=== PATIENT | male | born 1960 | race Caucasian/White ===

== ENCOUNTER 2022-08-14 10:08 | Inpatient (IN) | payer OTHER ==
[~2022-08-14] VITALS: Ht 175.3 cm; Wt 95.3 kg
[2022-08-14] MEDS ORDERED: ENOXAPARIN 60MG/0.6ML SYR SUBCUT ONE (11:45)
[2022-08-14 13:14] LABS: BASOPHILS % 0.5 % (0.0-2.0); EOSINOPHILS % 2.8 % (0.0-5.0); HEMATOCRIT. 46.1 % (42.0-52.0); HEMOGLOBIN. 15.1 g/dL (14.0-18.0); LYMPHOCYTES % 19.4 % (20.0-50.0); MEAN CORPUSCULAR HEMOGLOBIN 30.3 pg (28.0-32.0); MEAN CORPUSCULAR VOLUME 92.7 fL (80.0-94.0); MEAN PLATELET VOLUME 11.1 fl (7.4-10.4); MONOCYTES % 8.7 % (2.0-8.0); NEUTROPHILS % 68.6 % (40.0-76.0); PLATELET 106 x1000/uL (130-400); RED BLOOD CELL COUNT 4.97 mill/uL (4.7-6.1); RED CELL DISTRIBUTION WIDTH 13.9 % (11.6-14.6)
[2022-08-14 13:22] LABS: D-DIMER 3.16 mg/L FEU (<0.50); PARTIAL THROMBOPLASTIN TIME 25.7 sec (23.4-31.0); PROTHROMBIN TIME 10.9 sec (9.6-11.0)
[2022-08-14 14:46] LABS: CHLORIDE 110 mEq/L (98-107)
[2022-08-14] MEDS ORDERED: SODIUM CHLORIDE 0.9% 1,000 ML IV NR (15:30)
[2022-08-14] MEDS ORDERED: IOHEXOL-300 100 ML BOTTLE ONE (15:32)
[2022-08-15 02:20] VITALS: BP 132/89
[2022-08-15 02:28] VITALS: BP 132/89
[2022-08-15] MEDS ORDERED: DULA0.75 SQ (04:33)
[2022-08-15] MEDS ORDERED: METO25TA6 MT (04:33)
[2022-08-15] MEDS ORDERED: LOSA100T32 MT (04:33)
[2022-08-15] MEDS ORDERED: AMLO10TA80 MT (04:33)
[2022-08-15] MEDS ORDERED: HYDR12.54 MT (04:33)
[2022-08-15] MEDS ORDERED: DEXTROSE 50% WATER 50ML SYRINGE IV PRN (06:30)
[2022-08-15] MEDS: ACETAMINOPHEN 325MG TABLET PO PRN (06:56)
[2022-08-15] MEDS: BLOOD SUGAR DIAGNOSTIC STRIP TEST SCH ×4 (06:58→21:15)
[2022-08-15] MEDS: INSULIN LISPRO 100 UNITS/ML SUBCUT SCH ×4 (07:57→21:00)
[2022-08-15] MEDS: ENOXAPARIN 120MG/0.8ML SYR SUBCUT SCH ×2 (08:23→21:14)
[2022-08-15 10:10] LABS: BASOPHILS % 0.3 % (0.0-2.0); EOSINOPHILS % 2.2 % (0.0-5.0); HEMOGLOBIN. 13.7 g/dL (14.0-18.0); LYMPHOCYTES % 20.1 % (20.0-50.0); MEAN CORPUSCULAR VOLUME 92.6 fL (80.0-94.0); MONOCYTES % 7.5 % (2.0-8.0); NEUTROPHILS % 69.9 % (40.0-76.0); PLATELET 103 x1000/uL (130-400); RED BLOOD CELL COUNT 4.43 mill/uL (4.7-6.1)
[2022-08-15 12:00] VITALS: BP 138/85
[2022-08-15 16:00] VITALS: BP 132/83
[2022-08-15] MEDS: METOPROLOL TARTRATE 25MG TABLET PO SCH (17:34)
[2022-08-15 20:00] VITALS: BP 138/84
[2022-08-16] VITALS: BP 130/74
[2022-08-16] MEDS: SODIUM CHLORIDE 0.9% 1,000 ML IV SCH ×2 (01:13→17:17)
[2022-08-16 04:00] VITALS: BP 125/80
[2022-08-16] MEDS: INSULIN LISPRO 100 UNITS/ML SUBCUT SCH ×4 (06:25→21:00)
[2022-08-16] MEDS: BLOOD SUGAR DIAGNOSTIC STRIP TEST SCH ×4 (06:25→21:00)
[2022-08-16 08:00] VITALS: BP 133/77
[2022-08-16] MEDS ORDERED: LOSARTAN POTASSIUM 100 MG TABLET PO SCH (09:00)
[2022-08-16] MEDS ORDERED: HYDROCHLOROTHIAZIDE 12.5MG CAPSULE PO SCH (09:00)
[2022-08-16] MEDS: ENOXAPARIN 120MG/0.8ML SYR SUBCUT SCH (09:15)
[2022-08-16] MEDS: METOPROLOL TARTRATE 25MG TABLET PO SCH ×2 (09:16→17:00)
[2022-08-16] MEDS: AMLODIPINE 10MG TABLET PO SCH (09:16)
[2022-08-16 12:00] VITALS: BP 115/72
[2022-08-16 16:00] VITALS: BP 113/64
[2022-08-16 16:56] LABS: CREATINE KINASE 59 IU/L (39-308)
[2022-08-16] MEDS ORDERED: IODIXANOL 320MG/ML 100 ML BOTTLE IV ONE (17:24)
[2022-08-16] MEDS ORDERED: LIDOCAINE HCL 1% 20ML VIAL (Pyxis) INJ ONE (17:24)
[2022-08-16] MEDS ORDERED: HEPARIN 1000 UNITS/ML 10ML ONE (17:24)
[2022-08-16] MEDS ORDERED: MIDAZOLAM HCL 2 MG/2 ML VIAL ONE (17:24)
[2022-08-16] MEDS ORDERED: FENTANYL CITRATE/PF 50MCG/ML 2ML VIAL ONE (17:24)
[2022-08-16] MEDS ORDERED: ALTEPLASE 2MG/VIAL ITC NR ×2 (18:00)
[2022-08-16 20:30] VITALS: BP 129/84
[2022-08-16] MEDS: APIXABAN 5 MG TABLET PO SCH (21:22)
[2022-08-16] MEDS: ACETAMINOPHEN 325MG TABLET PO PRN (23:59)
[2022-08-17] VITALS: BP 131/83
[2022-08-17 04:05] VITALS: BP 111/62
[2022-08-17 06:09] LABS: BASOPHILS % 0.3 % (0.0-2.0); EOSINOPHILS % 1.7 % (0.0-5.0); HEMATOCRIT. 42.4 % (42.0-52.0); HEMOGLOBIN. 14.3 g/dL (14.0-18.0); LYMPHOCYTES % 14.4 % (20.0-50.0); MEAN CORPUSCULAR HEMOGLOBIN 30.8 pg (28.0-32.0); MEAN CORPUSCULAR VOLUME 91.3 fL (80.0-94.0); MEAN PLATELET VOLUME 11.1 fl (7.4-10.4); MONOCYTES % 7.9 % (2.0-8.0); NEUTROPHILS % 75.7 % (40.0-76.0); PLATELET 99 x1000/uL (130-400); RED BLOOD CELL COUNT 4.65 mill/uL (4.7-6.1); RED CELL DISTRIBUTION WIDTH 13.8 % (11.6-14.6)
[2022-08-17] MEDS: BLOOD SUGAR DIAGNOSTIC STRIP TEST SCH ×3 (06:51→16:35)
[2022-08-17] MEDS: INSULIN LISPRO 100 UNITS/ML SUBCUT SCH ×3 (07:31→16:37)
[2022-08-17 08:00] VITALS: BP 111/71
[2022-08-17] MEDS: APIXABAN 5 MG TABLET PO SCH ×2 (10:11→16:35)
[2022-08-17] MEDS: AMLODIPINE 10MG TABLET PO SCH (10:11)
[2022-08-17] MEDS: METOPROLOL TARTRATE 25MG TABLET PO SCH ×2 (10:11→16:35)
[2022-08-17 12:00] VITALS: BP 117/71
[2022-08-17] MEDS ORDERED: GLIP5TAB12 MT (12:19)
[2022-08-17] MEDS ORDERED: ATOR40TA70 MT (12:19)
[2022-08-17] MEDS ORDERED: AMMO140C2 TP (12:19)
[2022-08-17] MEDS ORDERED: DAPA5TAB MT (12:19)
[2022-08-17] MEDS: SODIUM CHLORIDE 0.9% 1,000 ML IV SCH (14:30)
[2022-08-17] MEDS ORDERED: APIX5TAB PO (14:46)
[2022-08-17 15:07] VITALS: BP 117/71
[2022-08-23] MEDS ORDERED: APIXABAN 5 MG TABLET PO SCH (17:00)
== END 2022-08-17 19:00 | disposition home or self-care (01) | DRG 169 ==
LOC: ER 10:32 → EDBEDREQ 17:39 → EDBEDREQTM 17:39 → ER 08-15 02:09 → 7WST 08-15 02:21
PROVIDERS: ADMIT Hospitalist; ATTEND Hospitalist
PROC: 06C03ZZ Extirpation of Matter from Inferior Vena Cava, Percutaneous Approach (ICD-10-PCS; principal; 2022-08-16)
PROC: 06CC3ZZ Extirpation of Matter from Right Common Iliac Vein, Percutaneous Approach (ICD-10-PCS; 2022-08-16)
PROC: 067C3ZZ Dilation of Right Common Iliac Vein, Percutaneous Approach (ICD-10-PCS; 2022-08-16)
PROC: 067F3ZZ Dilation of Right External Iliac Vein, Percutaneous Approach (ICD-10-PCS; 2022-08-16)
PROC: 06703ZZ Dilation of Inferior Vena Cava, Percutaneous Approach (ICD-10-PCS; 2022-08-16)
PROC: 3E03317 Introduction of Other Thrombolytic into Peripheral Vein, Percutaneous Approach (ICD-10-PCS; 2022-08-16)
DX: I82.220 Acute embolism and thrombosis of inferior vena cava (principal); N17.9 Acute kidney failure, unspecified; I82.421 Acute embolism and thrombosis of right iliac vein; E11.22 Type 2 diabetes mellitus with diabetic chronic kidney disease; K76.0 Fatty (change of) liver, not elsewhere classified; I12.9 Hypertensive chronic kidney disease with stage 1 through stage 4 chronic kidney disease, or unspecified chronic kidney disease; N18.9 Chronic kidney disease, unspecified; M19.90 Unspecified osteoarthritis, unspecified site
CPT/HCPCS: 36415; 37187; 37248; 71260; 74177; 75820; 76700; 76770; 80048; 80053; 82550; 82962; 83036; 85025; 85379; 93005; 93970; 99285; C1760; C1766; C1769; C1887; C1893; J1644; J1650; J2250; J2997; J3010; J3490; J7030; Q9967